=== PATIENT | female | born 2000 | race Hispanic/Latino ===

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

== ENCOUNTER 2022-07-22 12:25 | Emergency (ER) | payer OTHER ==
--- OUTSIDE RECORDS SUMMARY | 2022-07-22 12:29 | XMS REPORT | Continuity of Care Document ---
:2000 Author Organization [facility] t Address [address] [place] [address] Care Team Providers Name Role Phone Lasha Llamas NP Primary Care Physician [phone] LASHA LLAMAS Attending Clinician Unavailable LASHA LLAMAS Attending Clinician Unavailable Lab, Ang - Db Attending Clinician Unavailable GUALBERTO RAE Attending Clinician Unavailable Brittany Crump PT Attending Clinician Unavailable Gualberto Rae MD Attending Clinician Doctor Unassigned, [place] Attending Clinician Unavailable ONEIDA KIMBLE Attending Clinician Unavailable Ezra HEAD CD REACTOR OPERATOROneida Caballero Attending Clinician Pob, Adc Lab Main Attending Clinician Unavailable LASHA LLAMAS Admitting Clinician Unavailable ONEIDA KIMBLE Admitting Clinician Unavailable Payers Payer Name Policy Type Policy Number Effective Date Expiration Date S [facility] TSHBP 90 DEGREES [id number] 2022 00:00:00 Problems Condition Condition Condition Status Onset Resolution Last Treating Co mments Source Name Details Category Date Date Treatment Clinician Date History of History of Disease Active U nivers miscarriag miscarriag 1-23 it y of e, e, 00:00: [place] currently currently 00 Medi mirna Branch SAB SAB Disease Active 2021-06 Univers (spontaneo (spontaneo 0-30 it y of us 00:00: [place] ) ) 00 Medi mirna Branch Unspecifie Unspecifie Disease Active 2021-06 U nivers d ovarian d ovarian 0-30 ity of cyst, cyst, 00:00: [place] right side right side 00 Me dical Branch Rh Rh Disease Active 2021-06 Univers negative negative 0-22 ity of state in state in 00:00: [place] antepartum antepartum 00 Me dical period period Branch Vaginal Vaginal Disease Active 2021-06 Univers bleeding bleeding 0-22 ity of affecting affecting 00:00: Mihaela cason early early 00 Medical Bran ch Encounter Encounter Disease Active 2021-06 Uni vers for for 0-11 ity of supervis[place] other n of other 00 Me dical normal normal Branch in first in first trimester trimester Disease Active 2021-06 Uni vers with with 0-11 ity of inconclusi inconclusi [place] ve ve 00 Medica l viability, viability, Br anch single or single or unspecifie unspecifie d fetus d fetus Missed Missed Disease Active 2021-06 Univers menses menses 0-11 ity of 00:00: [place] 00 Medical Branch Disease Active 2021-06 Uni vers examinatio examinatio 0-11 it y of n or test, n [place] test, [place] positive positive 00 Medica l result result Branch Allergies, Adverse Reactions, Alerts Allergy Allergy Status Severity Reaction(s) Onset Inactive Treating Comm ents Source Name Type Date Date Clinician PEANUT DRUG Active Hives 2021-06 Univers INGREDI 0-07 ity of 00:00: [place] 00 Medical [place] Peanut Propensi Active Hives 2021-06 Univers ty to 0-07 ity of adverse 00:00: [place] reaction 00 Medical s [place] NO KNOWN Drug Active Univers ALLERGIE Class ity of S [facility] Social History Social Habit Start Date Stop Date Quantity Comments Source ASSERTION 2022-05-08 [facility] 00:00:00 [facility] Alcohol intake 2022-06-25 2022-06-25 Ex-drinker [facility] 00:00:00 00:00:00 (finding) [facility] Exposure to 2022-03-18 2022-03-28 Not sure [facility] SARS-CoV-2 00:00:00 16:11:00 [facility] (event) Branch Tobacco use and 2022-03-28 2022-03-28 Smokeless tobacco Un iversity of exposure 00:00:00 00:00:00 non-user [facility] Sex Assigned At [birth year] Universit y of 00:00:00 00:00:00 [facility] Smoking Status Start Date Stop Date Source Never smoked tobacco [facility] Medications Ordered Filled Start Stop Current Ordering Indication Dosage Frequency Signature Comments Components Source Medication Medication Date Date Medication? Clinician (SIG) Name Name No known 2021-06 No No known Unive rs medications 0-30 medication it y of 11:23: s [address] Branch ibuprofen 2021-06 Yes [id number] 600mg Take 1 U nivers 600 mg 0-26 tablet by ity of tablet 00:00: mouth [place] 00 every 6 Medical (six) Branch hours as needed for Pain (scale 4-6). ibuprofen 2021-06 Yes [id number] 600mg Take 1 U nivers 600 mg 0-26 tablet by ity of tablet 00:00: mouth [place] 00 every 6 Medical (six) Branch hours as needed for Pain (scale 4-6). ibuprofen 2021-06 Yes [id number] 600mg Take 1 U nivers 600 mg 0-26 tablet by ity of tablet 00:00: mouth [place] 00 every 6 Medical (six) Branch hours as needed for Pain (scale 4-6). ibuprofen 2021-06 Yes [id number] 600mg Take 1 U nivers 600 mg 0-26 tablet by ity of tablet 00:00: mouth [place] 00 every 6 Medical (six) Branch hours as needed for Pain (scale 4-6). ibuprofen 2021-06 Yes [id number] 600mg Take 1 U nivers 600 mg 0-26 tablet by ity of tablet 00:00: mouth [place] 00 every 6 Medical (six) Branch hours as needed for Pain (scale 4-6). ibuprofen 2021-06 Yes [id number] 600mg Take 1 U nivers 600 mg 0-26 tablet by ity of tablet 00:00: mouth [place] 00 every 6 Medical (six) Branch hours as needed for Pain (scale 4-6). ibuprofen 2021-06 Yes [id number] 600mg Take 1 U nivers 600 mg 0-26 tablet by ity of tablet 00:00: mouth [place] 00 every 6 Medical (six) Branch hours as needed for Pain (scale 4-6). ibuprofen 2021-06 Yes [id number] 600mg Take 1 U nivers 600 mg 0-26 tablet by ity of tablet 00:00: mouth [place] 00 every 6 Medical (six) Branch hours as needed for Pain (scale 4-6). ibuprofen 2021-06 Yes [id number] 600mg Take 1 U nivers 600 mg 0-26 tablet by ity of tablet 00:00: mouth [place] 00 every 6 Medical (six) Branch hours as needed for Pain (scale 4-6). ibuprofen 2021-06 Yes [id number] 600mg Take 1 U nivers 600 mg 0-26 tablet by ity of tablet 00:00: mouth [place] 00 every 6 Medical (six) Branch hours as needed for Pain (scale 4-6). No known 2021-06 No No known Unive rs medications 0-24 medication it y of 11:31: [address] No known 2021-06 No No known Unive rs medications 0-24 medication it y of 11:31: [address] No known 2021-06 No No known Unive rs medications 0-24 medication it y of 11:31: [address] No known 2021- No No known Unive rs medications 0-22 medication it y of 12:35: [address] No known 2021- No No known Unive rs medications 0-11 medication it y of 10:15: [address] No known 2021- No No known Unive rs medications 0-11 medication it y of 10:15: [address] No known 2021- No No known Unive rs medications 0-11 medication it y of 10:15: [address] No known 2021- No No known Unive rs medications 0-11 medication it y of 10:15: [address] Immunizations Ordered Filled Immunization Date Status Comments [facility] e Immunization Name Name Rho (d) Immune 2022-03-26 Completed University of Globulin 00:00:00 [facility] Rho (d) Immune 2022-03-26 Completed University of Globulin 00:00:00 [facility] Rho (d) Immune 2022-03-26 Completed University of Globulin 00:00:00 [facility] Rho (d) Immune 2022-03-26 Completed University of Globulin 00:00:00 [facility] Rho (d) Immune 2022-03-26 Completed University of Globulin 00:00:00 [facility] Rho (d) Immune 2022-03-26 Completed University of Globulin 00:00:00 [facility] Rho (d) Immune 2022-03-26 Completed University of Globulin 00:00:00 [facility] Rho (d) Immune 2022-03-26 Completed University of Globulin 00:00:00 [facility] Rho (d) Immune 2022-03-26 Completed University of Globulin 00:00:00 [facility] Rho (d) Immune 2022-03-26 Completed University of Globulin 00:00:00 [facility] Rho (d) Immune 2022-03-26 Completed University of Globulin 00:00:00 [facility] Rho (d) Immune 2022-03-26 Completed University of Globulin 00:00:00 [facility] Vital Signs Vital Name Observation Time Observation Value Comments Source Systolic blood 2022-06-25 19:13:00 119 mm[Hg] Univer sity of pressure [facility] Diastolic blood 2022-06-25 19:13:00 76 mm[Hg] Unive rsity of [facility] Heart rate 2022-06-25 19:13:00 81 /min [facility] Body temperature 2022-06-25 19:13:00 36.72 Ely [facility] Res[facility] rate 2022-06-25 19:13:00 16 /min [facility] Body height 2022-06-25 19:13:00 157.5 cm [facility] Body weight 2022-06-25 19:13:00 82.237 kg [facility] BMI 2022-06-25 19:13:00 33.16 kg/m2 [facility] Oxygen saturation in 2022-06-25 19:13:00 100 /min [facility] Arterial blood by [facility] [place] [facility] Pulse oximetry Branch Systolic blood 2022-03-28 21:45:00 119 mm[Hg] Univer sity of pressure [facility] Diastolic blood 2022-03-28 21:45:00 68 mm[Hg] Unive rsity of pressure [facility] Heart rate 2022-03-28 21:45:00 70 /min [facility] [place] [facility] Body temperature 2022-03-28 21:45:00 36.72 Ely Univ ersity of [facility] Branch Respiratory rate 2022-03-28 21:45:00 18 /min Univ ersity of [facility] Branch Body height 2022-03-28 21:45:00 157.5 cm Universi ty of [place] [facility] [place] Body weight 2022-03-28 21:45:00 81.194 kg [facility]i ty [facility] [place] [facility] BMI 2022-03-28 21:45:00 32.74 kg/m2 [facility]i ty [facility] [place] [facility] Systolic blood 2022-03-26 22:15:00 123 mm[Hg] Univer sity of pressure [facility] Diastolic blood 2022-03-26 22:15:00 75 mm[Hg] Unive rsity of pressure [facility] Heart rate 2022-03-26 22:15:00 78 /min Universi ty of [facility] Respiratory rate 2022-03-26 22:15:00 18 /min Univ ersity of [facility] Oxygen saturation in 2022-03-26 22:15:00 100 /min University of Arterial blood by [facility] [place] [facility] Pulse oximetry Branch Body temperature 2022-03-26 16:20:00 37.06 Ely Univ ersity of [facility] Body height 2022-03-26 16:20:00 157.5 cm Universi ty [facility] [place] [facility] Body weight 2022-03-26 16:20:00 78.926 kg Universi ty [facility] [place] [facility] BMI 2022-03-26 16:20:00 31.83 kg/m2 Universi ty of [facility] Branch Systolic blood 2022-03-23 21:10:00 125 mm[Hg] Univer sity of pressure [place] [facility] Diastolic blood 2022-03-23 21:10:00 68 mm[Hg] Unive rsity of pressure [facility] Branch Heart rate 2022-03-23 21:09:00 88 /min Universi ty of [facility] Branch Body temperature 2022-03-23 21:09:00 36.83 Ely Univ ersity of [facility] Branch Body height 2022-03-23 21:09:00 157.5 cm Universi ty of [facility] Branch Body weight 2022-03-23 21:09:00 79.969 kg Universi ty [facility] [place] [facility] BMI 2022-03-23 21:09:00 32.25 kg/m2 Universi ty [facility] Systolic blood 2022-03-09 19:33:00 133 mm[Hg] Univer sity of pressure [facility] Diastolic blood 2022-03-09 19:33:00 77 mm[Hg] Unive rsity of [facility] Heart rate 2022-03-09 19:33:00 86 /min [facility] Respiratory rate 2022-03-09 19:33:00 18 /min Univ [facility] Body height 2022-03-09 19:33:00 157.5 [facility] 2022-03-09 19:33:00 79.878 [facility] BMI 2022-03-09 19:33:00 32.21 kg/m2 [facility] Oxygen saturation in 2022-03-09 19:33:00 98 /min [facility] Arterial blood by [facility] Pulse oximetry Branch Procedures Procedure Date / Time Performing Clinician Source Performed GLUCOSE 1 HOUR POST 2022-07-20 14:40:00 Lasha Llamas [facility] TOTAL BETA HCG ASSAY 2022-07-20 14:40:00 [facility] WITH DIFF 2022-07-20 14:40:00 Lasha Llamas [facility] HIV 1/2 AG-AB WITH 2022-07-20 14:40:00 Lasha Llamas [facility] REFLEX [facility] POCT TEST 2022-06-25 00:00:00 Lasha Llamas [facility] POCT URINALYSIS W/O 2022-06-25 00:00:00 Lasha Llamas [facility] SPECIFIC GRAVITY [facility] EXTERNAL PROVIDER 2022-04-06 05:01:00 Doctor Unassigned, No Univ [facility] RECORDS Name Medical Branch US FIRST 2022-03-26 20:31:00 Oneida Kimble [facility] TRIMESTER LESS THAN 14 Medical B ranch WEEKS WITH TRANSVAGINAL URINALYSIS 2022-03-26 17:42:00 Oneida Kimble [facility] NOTICE OF PRIVACY 2022-03-26 16:50:49 Doctor Unassigned, No [facility] PRACTICES [facility] COMP. METABOLIC PANEL 2022-03-26 16:47:00 Oneida Kimble [facility] ([id number]) [facility] TOTAL BETA HCG ASSAY 2022-03-26 16:47:00 Oneida Kimble [facility] CBC WITH DIFF 2022-03-26 16:47:00 Oneida Kimble [facility] HB -MATERNAL 2022-03-26 16:45:00 Oneida Kimble [facility] HEMORRHAGE SCREEN [facility] HB ABO GROUPING 2022-03-26 16:45:00 Oneida Kimble [facility] CONSENT/REFUSAL FOR 2022-03-26 16:15:58 Doctor Unassigned, No [facility] AUTHORIZATION TO RELEASE 2022-03-23 05:01:00 Doctor Unassigned, No [facility] PHI TO [facility] GC & CHLAMYDIA AMPLIFIED 2022-03-09 19:49:[address] [facility] TRICHOMONAS AMPLIFIED 2022-03-09 19:49:00 Lasha Llamas [facility] POCT URINALYSIS W/O 2022-03-09 19:49:00 Lasha Llamas [facility] SPECIFIC GRAVITY [facility] POCT TEST 2022-03-09 19:48:[address] [facility] ASSIGNMENT OF BENEFITS 2022-03-09 19:16:22 Doctor Unassigned, No [facility] Encounters Start End Encounter Admission Attending Care Care Encounter Source Date/Time Date/Time Type Type Clinicians Facility Department ID 2022-07-23 2022-07-23 Outpatient R LASHA LLAMAS [facility] B [id number] Univers 16:30:00 16:30:00 LASHA LLAMAS petr [facility] 2022-07-20 2022-07-20 Chief Risk Officer Lab, Ang - Db [facility] 1.2.840.1 [id number] Univers 07:30:00 08:42:10 Visit Lasha Llamas 350.1.13.1 0 ity of [place] 4.2.7.2.686 [place]iago as ELEN?BLEA [id number] Wy dical KNEY [address] [facility] 2022-07-20 2022-07-20 Outpatient R ALONSOMARITZA LASHA [facility] B [id number] Univers 07:30:00 07:30:00 ALONSOMARIELY SALASBRAVO itpetr [facility] 2022-07-16 2022-07-16 Outpatient R KYRA [facility] [id number] Univers 14:00:00 16:44:05 GUALBERTO ity [facility] 2022-07-16 2022-07-16 Ancillary Crump Brittany Castro [facility] 1.2.840. 114 [id number] Univers 14:00:00 16:44:05 Visit Gualberto Rae 350.1.13.10 ity of [place].2.7.2.686 [place] [id number] Wy genarovicky [facility] 179 [facility] 2022-07-03 2022-07-03 Case Farhad [facility] 1.2.840.114 [id number] Univers 00:00:00 00:00:00 Management Lasha [place] 350.1.13.10 ity of [place] 4[place]2.[place].2.686 [place] [id number] [address] 2022-06-30 2022-06-30 Case Alonsomaritza [facility] 1.2.840.114 [id number] Univers 00:00:00 00:00:00 Management Lasha [place]STER 350.1.13.10 ity of [place].2.[place] [id number] [address] 2022-06-29 2022-06-29 Outpatient R JAILYNMARIELY GREENBRAVO [facility] B [id number] Univers 17:31:05 23:59:00 ALONSOMARIELY SALASBRAVO larkinpetr [facility] 2022-06-29 2022-06-29 [facility] 1.2.840.114 1 [id number] Univers 17:31:05 23:59:00 Encounter Lasha OROPEZA 350.1.13.10 [facility]y [facility] 4.2.7.2.686 [facility] [id number] [facility] 806 Branch 2022-06-25 2022-06-25 Outpatient R LASHA LLAMAS [facility] B [id number] Univers 13:00:00 13:32:24 [facility] petr [facility] 2022-06-25 2022-06-25 Initial [facility] 1.2.840.114 [id number] Univers 13:00:00 13:32:24 Lasha CHESTER 350.1.13.10 i ty of Visit WOMEN'S 4.2.7.2.686 [facility] [id number] [facility] 134 Branch 2022-06-22 2022-06-22 Outpatient R ALSHA LLAMAS [facility] B [id number] Univers 09:00:00 09:00:00 [facility] 2022-04-06 2022-04-06 Outpatient R LASHA LLAMAS [facility] B [id number] Univers 14:30:00 14:30:00 LASHA LLAMAS petr [facility] 2022-04-06 2022-04-06 Orders Doctor MORALES 1.2.840.114 [id number] Univers 00:00:00 00:00:00 Only Unassigned, [place] 350.1.13.10 ity of [place] [facility] 4.2.7.2.686 [place] [id number] [facility] 009 Branch 2022-04-02 2022-04-02 Case Farhad [facility] 1.2.840.114 [id number] Univers 00:00:00 00:00:00 Management Lasha CHESTER 350.1.13.10 ity of WOMEN'S 4.2.7.2.686 [facility] [id number] [facility] 134 Branch 2022-03-28 2022-03-28 Outpatient R ALONSOMARIELY SALASBRAVO [facility] B [id number] Univers 16:30:00 17:00:02 ALONSOLASHA SALAS [facility] 2022-03-28 2022-03-28 Routine [facility] 1.2.840.114 [id number] Univers 16:30:00 17:00:02 Lasha CHESTER 350.1.13.10 i ty of Visit WOMEN'S 4.2.7.2.686 [facility] [id number] [address] 2022-03-28 2022-03-28 Outpatient R [facility] [id number] Univers 16:45:00 16:45:00 ity [facility] 2022-03-27 2022-03-27 Telephone [facility] 1.2.840.11 [id number] Univers 00:00:00 00:00:00 Lasha CHESTER 350.1.13.10 it y of W[place]EN'S 4.2.7.2.686 [facility] [id number] [address] 2022-03-26 2022-03-26 Emergency X KIMBLE, [facility] ERT [id number] Univers 11:22:00 17:24:00 ONEIDA francisco [facility] 2022-03-26 2022-03-26 Emergency Kimble, [facility] 1.2.840.114 [id number] Univers 11:22:00 17:24:00 Oneida OROPEZA 350.1.13.10 i ty of [place] 4.2.7.2.686 [facility] [id number] [place] 735604 Branch 2022-03-26 2022-03-26 Telephone [facility] 1.2.840.11 [id number] Univers 00:00:00 00:00:00 Lasha CHESTER 350.1.13.10 it y of PEDIATRIC 4.2.7.2.686 [facility] [id number] [facility] [address] [place] 2022-03-23 2022-03-23 Outpatient R FARHAD LASHA [facility] B [id number] Univers 16:15:00 16:24:56 TRITSCHLERLASHA nolan [facility] 2022-03-23 2022-03-23 Routine [facility] 1.2.840.114 [id number] Univers 16:15:00 16:24:56 Lasha CHESTER 350.1.13.10 i ty of Visit WOMEN'S 4.2.7.2.686 [facility] [id number] [facility] 134 Branch 2022-03-23 2022-03-23 Orders Doctor ANDREW 1.2.840.114 [id number] Univers 00:00:00 00:00:00 Only Unassigned, [place] 350.1.13.10 ity of [place] [facility] 4.2.7.2.686 [place] [id number] [facility] 009 Branch 2022-03-16 2022-03-16 Outpatient R FARHAD LASHA [facility] B [id number] Univers 15:53:36 23:59:00 LASHA LLAMAS [facility] 2022-03-16 2022-03-16 [facility] 1.2.840.114 [id number] Univers 15:53:36 23:59:00 Encounter Lasha SANDIP 350.1.13.10 ity of [place] 4.2.7.2.686 [facility] [id number] [facility] [address] [place] 2022-03-14 2022-03-14 Chief Risk Officer Tonia, Megan Lab Main [facility] 1.2.8 40.114 [id number] Univers 11:15:00 11:30:00 Visit Farhad Lasha OROPEZA 350.1.13. 10 ity of [place] 4.2.7.2.686 [facility] PROFESSIO [id number] Wy dical [facility] 353 [facility] 2022-03-14 2022-03-14 Outpatient R LASHA LLAMAS [facility] B [id number] Univers 11:15:00 11:15:00 LASHA LLAMAS [facility] 2022-03-13 2022-03-13 Telephone [facility] 1.2.840.11 [id number] Univers 00:00:00 00:00:00 Lasha CHESTER 350.1.13.10 it y [place] 4[place]2.[place] [id number] [address] 2022-03-12 2022-03-12 Chief Risk Officer Tonia, Megan Lab Main [facility] 1.2.8 40.114 [id number] Univers 11:00:00 11:15:00 Visit Lasha Llamas 350.1.13. 10 it[place] of [place] 4.2.7.2.[place] [id number] Wy dical [address] 2022-03-12 2022-03-12 Outpatient R LASHA LLAMAS [facility] B [id number] Univers 11:00:00 11:00:00 LASHA LLAMAS ity of [facility] 2022-03-12 2022-03-12 Telephone [facility] 1.2.840.11 [id number] Univers 00:00:00 00:00:00 Marielybravo HENRIK 350.1.13.10 it y of [place] 4.2.[place].2.[place] [id number] [address] 2022-03-12 2022-03-12 Case [facility] 1.2.840.114 [id number] Univers 00:00:00 00:00:00 Management Lasha [place]STER 350.1.13.10 ity [place] 4[place].2.[place] [id number] [address] 2022-03-12 2022-03-12 Telephone [facility] 12.840.11 4 [id number] Univers 00:00:00 00:00:00 Lasha CHESTER 350.1.13.10 it y [place].7.2.[place] [facility] [id number] [address] 2022-03-12 2022-03-12 Telephone [facility] 1.2.840.114 [id number] Univers 00:00:00 00:00:00 Lasha OROPEZA 350.1.13.10 i ty [facility] 4.[place] [id number] Wy dical [place] [address] Branch [facility] 2022-03-09 2022-03-09 Outpatient R MARVINLASHA GILBERT [facility] B [id number] Univers 14:30:00 15:06:09 LASHA LLAMAS ity of [facility] 2022-03-09 2022-03-09 Initial Farhad [facility]ANKS 1.2.840.114 [id number] Univers 14:30:00 15:06:09 Lasha CHESTER 350.1.13.10 i ty of Visit [facility] 4.2.7.2.[place] [id number] [address] 2022-03-09 2022-03-09 Orders Doctor ANDREW 1.2.840.114 [id number] Univers 00:00:00 00:00:00 Only Unassigned, [place] 350.1.13.10 ity of [place] [facility] 4.2.7.2.686 Thiago as [id number] [address] Results Test Description Test Time Test Comments Results Result Comments Source HCG, QUANTITATIVE, 2022-07-20 20:40:09 Test Item Value Reference Range Interpretation Comme nts BETA HCG (test code = 60537.00 See_Comment [Auto mated message] The [id number]) system which ge nerated this result transmit sandeep reference range : Non- fe male and male patients: <5 mIU/mL. The reference r sofie was not used to interpr et this result as lexy l/abnormal. VLADIMIR (test code = VLADIMIR) Gestational Age ?Range (mIU/mL) 1-10 ?Weeks ?[id number] Weeks ?[id number] Weeks ?[id number] Weeks ?[id number] Biotin has been reported to cause a negative bias, interpret results relative to patient's use of biotin. [facility] WITH [id number] 20:31:43 Test Item Value Reference Range Interpretation Comments HIV 0.08 Negative Semi-quantitative (test code = 41676-6) VLADIMIR (test code = Non-reactive for HIV-1 VLADIMIR) antigen and HIV-1/HIV-2 antibodies. ?No laboratory evidence of HIV infection. ?Repeat in 2-4 weeks if acute HIV infection is suspected. [facility] WITH [id number] 20:02:22 Test Item Value Reference Range Interpretation Comments WBC (test code = 6.63 See_Comment [Automated 3198-2) message] The sy stem which generated this result transmitted reference range : 4.30 - 11.10 10*3/?L. The reference range was not used to interpret this result as normal/abnormal . RBC (test code = 4.00 See_Comment [Automated 129-8) message] The sy stem which generated this result transmitted reference range : 3.93 - 5.25 10*6/?L. The reference range was not used to interpret this result as normal/abnormal . HGB (test code = 11.4 g/dL 11.6-15.0 L 718-7) HCT (test code = 34.2 % 35.7-45.2 L 4544-3) MCV (test code = 85.5 fL 80.6-95.5 787-2) MCH (test code = 28.5 pg 25.9-32.8 785-6) MCHC (test code = 33.3 g/dL 31.6-35.1 786-4) RDW-SD (test code = 41.4 fL 39.0-49.9 84255-1) RDW-CV (test code = 13.3 % 12.0-15.5 788-0) PLT (test code = 214 See_Comment [Automated 777-3) message] The sy stem which generated this result transmitted reference range : 166 - 358 10*3/ ?L. The reference r sofie was not used to interpret this result as normal/abnormal . MPV (test code = 10.4 fL 9.5-12.9 19120-3) NRBC/100 WBC (test 0.0 See_Comment [Automat ed code = 2940303148) message] The system which generated this result transmitted reference range : 0.0 - 10.0 /100 WBCs. The refer ence range was not u sed to interpret th is result as normal/abnormal . NRBC x10^3 (test code See_Comment [Auto mated = 7027510396) message] The s ystem which generated this result transmitted reference range : 10*3/?L. The reference range was not used to interpret this result as normal/abnormal . GRAN MAT (NEUT) % 80.3 % (test code = 770-8) IMM GRAN % (test code 0.50 % = 7917331569) LYMPH % (test code = 12.5 % 736-9) MONO % (test code = 5.0 % 5905-5) EOS % (test code = 1.1 % 713-8) BASO % (test code = 0.6 % 706-2) GRAN MAT x10^3(ANC) 5.33 10*3/uL 1.88-7.09 (test code = 3551821286) IMM GRAN x10^3 (test 0.03 10*3/uL 0.00-0.06 code = 2222765856) LYMPH x10^3 (test code 0.83 10*3/uL 1.32-3.29 L = 731-0) MONO x10^3 (test code 0.33 10*3/uL 0.33-0.92 = 742-7) EOS x10^3 (test code = 0.07 10*3/uL 0.03-0.39 711-2) BASO x10^3 (test code 0.04 10*3/uL 0.01-0.07 = 704-7) Lab Interpretation Abnormal (test code = 35886-6) [facility] [id number] 19:50:10 Test Item Value Reference Range Interpretation Comments GLUC 1 HR (test code = 9344688071) 81 mg/dL 120-170 L Lab Interpretation (test code = Abnormal 43466-6) [facility]/O SPECIFIC [id number] 19:41:00 Test Item Value Reference Range Interpretation Comments POCT PH U (test code = 3254) n/a 5-8 POCT U LEUK EST (test code = n/a Negative - Negative 3263) POCT U NIT (test code = 3262) n/a Negative - Negative POCT U PROT (test code = 3259) negative Negative - Negative POCT U GLU (test code = 3256) negative Negative - Negative POCT U KETONE (test code = 3258) n/a Negative - Negative POCT U BLD (test code = 3257) n/a Negative - Negative [facility] [id number] 19:35:00 Test Item Value Reference Range Interpretation Comments POCT PREG (test code = 1605) Positive On board controls acceptable with C Yes Line (test code = 3574) POCT PREG LOT # (test code = 3575) POCT PREG TEST DATE (test code = 3576) [facility] [id number] 20:29:12 Test Item Value Reference Range Interpretation Comments SCREEN (test Negative Performed at [facility] code = 846) Laboratory [facility] [place], [place] [address]Toll Free: [phone] A No. [id number] RHIG REQUIRED? (test 1 Syringe Perform ed at [facility] code = 1747) Laboratory [facility] Blood [place] [address]Toll Free: [phone] A No. [id number] [facility]Type and Screen - ONCE [id number] 18:56:26 Test Item Value Reference Range Interpretation Comments ABO & RH (test code O Negative Performe d at [facility] = 20) Laboratory [facility] [place], [place] [address]Toll Free: [phone] A No. [id number] IAT (test code = Positive Performed a t [facility] 1185) Laboratory [facility] Blood [place] [address]Toll Free: [phone] A No. [id number] [facility] [id number] 19:49:00 Test Item Value Reference Range Interpretation Comments POCT PREG (test code = 1605) Positive On board controls acceptable with C Yes Line (test code = 3574) POCT PREG LOT # (test code = 3575) POCT PREG TEST DATE (test code = 3576) Lab Interpretation (test code = Normal 21377-8) [facility] W/O SPECIFIC [id number] 19:49:00 Test Item Value Reference Range Interpretation Comments POCT PH U (test code = 3254) n/a 5-8 POCT U LEUK EST (test code = n/a Negative - Negative 3263) POCT U NIT (test code = 3262) n/a Negative - Negative POCT U PROT (test code = 3259) negative Negative - Negative POCT U GLU (test code = 3256) negative Negative - Negative POCT U KETONE (test code = 3258) n/a Negative - Negative POCT U BLD (test code = 3257) n/a Negative - Negative Lab Interpretation (test code = Normal 31371-7) [facility]
--- NOTE | 2022-07-22 12:46 | ER ---
Nurse's Notes [facility] Name: Yahaira Ziegler Age: 21 yrs Sex: Female : 2000 Arrival Date: 07/22/2022 Time: 12:27 Bed 12 Private MD: Diagnosis: Acute upper respiratory infection, unspecified Presentation: 07/22 12:32 Chief complaint: Patient states: "I am 12 weeks and they I just got a positive aa5 test for rubella on Saturday and it freaked me out because of the baby". Pt reports cough and congestion, low grade fever. Coronavirus screen: congestion, cough unrelated to allergies. Ebola Screen: Patient denies travel to an Ebola-affected area in the 21 days before illness onset. Initial Sepsis Screen: Does the patient meet any 2 criteria? HR > 90 bpm. Does the patient have a suspected source of infection? No. Patient's initial sepsis screen is negative. Risk Assessment: Do you want to hurt yourself or someone else? Patient reports no desire to harm self or others. Onset of symptoms was July 2022. 12:32 Acuity: SRI 4 aa5 12:32 Method Of Arrival: Ambulatory aa5 Historical: - Allergies: 12:33 No Known Allergies; aa5 - PMHx: 12:33 None; aa5 - PSHx: 12:33 None; aa5 - Immunization history:: Adult Immunizations up to date. - Social history:: Smoking status: Patient denies any tobacco usage or history of. Screenin:47 [facility] ED Fall Risk Assessment (Adult) History of falling in the last 3 months, mb9 including since admission No falls in past 3 months (0 pts) Confusion or Disorientation No (0 pts) Intoxicated or Sedated No (0 pts) Impaired Gait No (0 pts) Mobility Assist Device Used No (0 pt) Altered Elimination No (0 pt) Score/Fall Risk Level 0 - 2 = Low Risk Oriented to surroundings, Maintained a safe environment, Educated pt \\T\\ family on fall prevention, incl call for assistance when getting out of bed. Abuse screen: Denies threats or abuse. Nutritional screening: No deficits noted. Tuberculosis screening: No symptoms or risk factors identified. Assessment: 12:46 General: Appears in no apparent distress. comfortable, Behavior is anxious. Pain: mb9 Denies pain. Neuro: Level of Consciousness is awake, alert, obeys commands, Oriented to person, place, time, situation, Appropriate for age. Cardiovascular: Capillary refill < 3 seconds is brisk Patient's skin is warm and dry. Respiratory: Airway is patent Respiratory effort is even, unlabored, Respiratory pattern is regular, symmetrical. GI: No signs and/or symptoms were reported involving the gastrointestinal system. : No signs and/or symptoms were reported regarding the genitourinary system. EENT: No signs and/or symptoms were reported regarding the EENT system. Derm: Skin is pink, warm \\T\\ dry. Musculoskeletal: Range of motion: intact in all extremities. Vital Signs: 12:32 BP 129 / 92; Pulse 114; Resp 16 S; Temp 98.2(TE); Pulse Ox 100% on R/A; Weight 78.93 kg aa5 (R); Height 5 ft. 2 in. (157.48 cm) (R); 12:32 Body Mass Index 31.82 (78.93 kg, 157.48 cm) [facility] ED Course: 12:27 Patient arrived in ED. as 12:32 Arm band placed on. 5 12:33 Triage completed. aa5 12:35 Bed in low position. Call light in reach. Side rails up X 1. Client placed on mb9 continuous cardiac and pulse oximetry monitoring. NIBP monitoring applied. 12:38 Luci Vázquez, HANNA is Primary Nurse. mb9 12:39 Martha Henriquez FNP is [facility] 12:39 Paulie Kent MD is Attending Physician. [facility] 12:47 No provider procedures requiring assistance completed. Patient did not have IV access mb9 during this emergency room visit. Administered Medications: No medications were administered Medication: 12:47 VIS not applicable for this client. mb9 Outcome: 12:45 Discharge ordered by . 7 12:47 Discharged to home ambulatory. mb9 12:47 Condition: stable 12:47 Discharge instructions given to patient, Instructed on discharge instructions, follow up and referral plans. Demonstrated understanding of instructions, follow-up care. 12:51 Patient left the ED. mb9 Signatures: Radha Ibarra Audri, RN RN [facility] Martha Henriquez FNP [place] [address] Luci Vázquez RN RN 9 Corrections: (The following items were deleted from the chart) 12:34 12:33 Immunization history: Adult Immunizations unknown, aa5 aa5 12:35 12:32 BP 129 / 92; Pulse 114bpm; Resp 16bpm; Spontaneous; Pulse Ox 100% RA; Temp 98.2F aa5 Temporal; aa5
--- NOTE | 2022-07-22 12:46 | EDPHYS ---
Physician Documentation [facility] Name: Yahaira Ziegler Age: 21 yrs Sex: Female : 2000 Arrival Date: 07/22/2022 Time: 12:27 Bed 12 Private MD: ED Physician Paulie Kent HPI: 07/22 12:30 This 21 yrs old Female presents to ER via Ambulatory with complaints of jh7 Abnormal Lab Results - rubella+, Cold Symptoms, 12 wks preg. 12:30 21-year-old female reports possible positive rubella on lab results and mild cold jh7 symptoms for the past 2 days. Reports that she is 12 weeks and has an appointment with your RECREATIONAL VEHICLE REPAIRER tomorrow. States that she has miscarried once before and just wants her lab results reviewed.. Historical: - Allergies: 12:33 No Known Allergies; aa5 - PMHx: 12:33 None; aa5 - PSHx: 12:33 None; aa5 - Immunization history:: Adult Immunizations up to date. - Social history:: Smoking status: Patient denies any tobacco usage or history of. ROS: 12:30 Constitutional: Negative for fever, chills, and weight loss, Eyes: Negative for injury, jh7 pain, redness, and discharge, Neck: Negative for injury, pain, and swelling, Cardiovascular: Negative for chest pain, palpitations, and edema, Respiratory: Negative for shortness of breath, cough, wheezing, and pleuritic chest pain, Abdomen/GI: Negative for abdominal pain, nausea, vomiting, diarrhea, and constipation, : Negative for injury, bleeding, discharge, and swelling, MS/Extremity: Negative for injury and deformity, Skin: Negative for injury, rash, and discoloration, Neuro: Negative for headache, weakness, numbness, tingling, and seizure. 12:30 ENT: Positive for nasal discharge. 12:30 All other systems are negative. Exam: 12:30 Constitutional: This is a well developed, well nourished patient who is awake, alert, jh7 and in no acute distress. Head/Face: Normocephalic, atraumatic. Cardiovascular: Regular rate and rhythm with a normal S1 and S2. No gallops, murmurs, or rubs. Normal PMI, no JVD. No pulse deficits. Respiratory: Lungs have equal breath sounds bilaterally, clear to auscultation and percussion. No rales, rhonchi or wheezes noted. No increased work of breathing, no retractions or nasal flaring. Abdomen/GI: Soft, non-tender, with normal bowel sounds. No distension or tympany. No guarding or rebound. No evidence of tenderness throughout. Skin: Warm, dry with normal turgor. Normal color with no rashes, no lesions, and no evidence of cellulitis. MS/ Extremity: Pulses equal, no cyanosis. Neurovascular intact. Full, normal range of motion. Neuro: Awake and alert, GCS 15, oriented to person, place, time, and situation. Motor strength 5/5 in all extremities. Sensory grossly intact. Normal gait. 12:30 ENT: Nose: nasal drainage, and is seen coming from both nares, that is clear. Vital Signs: 12:32 BP 129 / 92; Pulse 114; Resp 16 S; Temp 98.2(TE); Pulse Ox 100% on R/A; Weight 78.93 kg aa5 (R); Height 5 ft. 2 in. (157.48 cm) (R); 12:32 Body Mass Index 31.82 (78.93 kg, 157.48 cm) aa5 MDM: 12:39 Patient medically screened. [facility] 12:45 Differential diagnosis: viral Infection, URI. Data reviewed: vital signs, nurses notes. [facility] Test considered but Not performed: Other Details COVID flu swab. Counseling: I had a detailed discussion with the patient and/or guardian regarding: the historical points, exam findings, and any diagnostic results supporting the discharge/admit diagnosis, to return to the emergency department if symptoms worsen or persist or if there are any questions or concerns that arise at home. Special discussion: Informed the patient that her rubella titer was what was positive and that this did not indicate that she actually had rubella. Offered COVID flu swab for runny nose/congestion, but the patient declined testing. Reports that she will follow-up with her RE[facility]ATIONAL VEHICLE REPAIRER at [facility] tomorrow.. Administered Medications: No medications were administered Disposition: 16:08 Co-signature as Attending Physician, Paulie Kent MD I agree with the assessment and kdr plan of care. Disposition Summary: 07/22/22 12:45 Discharge Ordered Location: Home [facility] Problem: [facility] Symptoms: are unchanged [facility] Condition: Stable [facility] Diagnosis - Acute upper respiratory infection, unspecified 7 Followup: [facility] - With: Private Physician - When: 2 - 3 days - Reason: Recheck today's complaints Discharge Instructions: - Discharge Summary Sheet 7 - and Rubella jh7 - Upper Respiratory Infection, Adult jh7 - Viral Respiratory Infection jh7 - Rubella Test [facility] Forms: - Medication Reconciliation Form [facility] - Thank You Letter [facility] Signatures: Paulie Kent MD MD kdr Calderon, Audri, RN RN aa5 Martha Henriquez FNP L[employer] EQUIPMENT OPERATOR [facility] Corrections: (The following items were deleted from the chart) 12:34 12:33 Immunization history: Adult Immunizations unknown, aaBrant aa5
[2022-07-22 12:57] VITALS: BP 129/92; TEMP 98.2; O2SAT 100
== END 2022-07-22 12:51 | disposition home or self-care (01) ==
LOC: ER 12:25
DX: O99.511 Diseases of the respiratory system complicating pregnancy, first trimester (principal); J06.9 Acute upper respiratory infection, unspecified
CPT/HCPCS: 99281